=== PATIENT | female | born 1930 | race Caucasian/White ===

== ENCOUNTER 2016-11-13 17:20 | Inpatient (IN) | payer MEDICAID, OTHER ==
[~2016-11-13] VITALS: Ht 149.9 cm; Wt 58.5 kg
[2016-11-13] MEDS ORDERED: CLOP75TA33 PO (17:37)
[2016-11-13] MEDS ORDERED: ASPI-1159 PO (17:37)
[2016-11-13] MEDS ORDERED: GABA-531 PO (17:37)
[2016-11-13] MEDS ORDERED: LOSA50TA20 PO (17:37)
[2016-11-13] MEDS ORDERED: DAPA10TA PO (17:37)
[2016-11-13] MEDS ORDERED: METO25TA6 PO (17:37)
[2016-11-13 19:27] LABS: BASOPHILS % 0.3 % (0.0-2.0); EOSINOPHILS % 2.1 % (0.0-5.0); HEMATOCRIT. 38.6 % (36.0-48.0); HEMOGLOBIN. 12.6 g/dL (12.0-16.0); LYMPHOCYTES % 12.8 % (20.0-50.0); MEAN CORPUSCULAR HEMOGLOBIN 28.6 pg (28.0-32.0); MEAN CORPUSCULAR VOLUME 87.5 fL (81.0-99.0); MONOCYTES % 9.2 % (2.0-8.0); NEUTROPHILS % 75.6 % (40.0-76.0); PLATELET 205 x1000/uL (130-400); RED BLOOD CELL COUNT 4.42 mill/uL (4.2-5.4); RED CELL DISTRIBUTION WIDTH 13.8 % (11.6-14.6)
[2016-11-13 19:30] LABS: CHLORIDE 102 mEq/L (98-107)
[2016-11-13 19:33] LABS: INR 0.9; PROTHROMBIN TIME 9.9 sec (9.4-11.6)
[2016-11-13 19:36] LABS: CARBON DIOXIDE 25 mEq/L (21-32)
[2016-11-13] MEDS ORDERED: SODIUM CHLORIDE 0.9% 1,000 ML IV ONE ×2 (20:18→22:15)
[2016-11-13 21:30] LABS: CLARITY URINE CLEAR (CLEAR); COLOR URINE YELLOW (YELLOW); KETONES URINE NEGATIVE (NEGATIVE); LEUKOCYTE ESTERASE URINE NEGATIVE (NEGATIVE); NITRITE URINE NEGATIVE (NEGATIVE); OCCULT BLOOD URINE TRACE (NEGATIVE); PROTEIN URINE NEGATIVE (NEGATIVE); SPECIFIC GRAVITY URINE 1.021 (1.005-1.030); UROBILINOGEN URINE 0.2 E.U./dL (0.2-1.0)
[2016-11-13] MEDS ORDERED: CEFTRIAXONE 1 G PREMIX 50 ML IV ONE (22:15)
[2016-11-14 06:20] LABS: BASOPHILS % 0.4 % (0.0-2.0); EOSINOPHILS % 1.8 % (0.0-5.0); HEMATOCRIT. 35.5 % (36.0-48.0); HEMOGLOBIN. 11.4 g/dL (12.0-16.0); LYMPHOCYTES % 20.3 % (20.0-50.0); MEAN CORPUSCULAR HEMOGLOBIN 28.1 pg (28.0-32.0); MEAN CORPUSCULAR VOLUME 87.2 fL (81.0-99.0); MEAN PLATELET VOLUME 9.5 fl (7.4-10.4); MONOCYTES % 14.2 % (2.0-8.0); NEUTROPHILS % 63.3 % (40.0-76.0); PLATELET 174 x1000/uL (130-400); RED BLOOD CELL COUNT 4.07 mill/uL (4.2-5.4); RED CELL DISTRIBUTION WIDTH 13.9 % (11.6-14.6)
[2016-11-14] MEDS ORDERED: DEXTROSE 50% WATER 50ML SYRINGE IV PRN (07:45)
[2016-11-14] MEDS: INSULIN LISPRO 100 UNITS/ML SUBCUT SCH ×4 (08:16→21:08)
[2016-11-14] MEDS: SODIUM CHLORIDE 0.9% 1,000 ML IV SCH ×2 (08:42→21:10)
[2016-11-14] MEDS: BLOOD SUGAR DIAGNOSTIC STRIP TEST SCH ×4 (08:42→20:36)
[2016-11-14] MEDS ORDERED: ENOXAPARIN 30MG/0.3ML SYR SUBCUT SCH (09:00)
[2016-11-14 09:03] LABS: CREATINE KINASE 70 IU/L (26-192); TROPONIN I < 0.02 ng/mL (0.00-0.04)
[2016-11-14] MEDS ORDERED: REGADENOSON 0.4 MG/5 ML IV ONE (09:45)
[2016-11-14 10:08] LABS: BG BASE EXCESS -6.2 mmol/L (-2.0-2.0); BG CARBOXYHEMOGLOBIN 0.4 % (0.5-1.5); BG FRACTION INSPIRED OXYGEN 21; BG HCO3 ACT 18.3 mmol/L (22.0-26.0); BG METHEMOGLOBIN 0.1 % (0.0-1.5); BG OXYHEMOGLOBIN 95.5 % (94.0-97.0); BG PH 7.362 (7.350-7.450); BG PO2 83.9 mmHg (75.0-100.0); BG SAMPLE SITE RIGHT BRACHIAL; BG TOTAL HEMOGLOBIN 12.1 g/dL (12.0-18.0); BG VENT MODE ROOM AIR
[2016-11-14] MEDS: ASPIRIN 81MG EC TABLET PO SCH ×2 (10:08→17:03)
[2016-11-14] MEDS: CLOPIDOGREL 75MG TABLET PO SCH (10:08)
[2016-11-14] MEDS: METOPROLOL TARTRATE 25MG TABLET PO SCH ×2 (10:11→21:07)
[2016-11-14] MEDS ORDERED: LEVOFLOXACIN 500MG PREMIX 100 ML IV NR (12:00)
[2016-11-14] MEDS: NITROGLYCERIN OINT 1GM/INCH UDPKT TD SCH ×2 (14:00→21:07)
[2016-11-14] MEDS: ATORVASTATIN CALCIUM 10MG TABLET PO SCH (21:07)
[2016-11-15] MEDS: BLOOD SUGAR DIAGNOSTIC STRIP TEST SCH ×4 (05:59→20:39)
[2016-11-15] MEDS: NITROGLYCERIN OINT 1GM/INCH UDPKT TD SCH ×3 (06:01→21:10)
[2016-11-15] MEDS: INSULIN LISPRO 100 UNITS/ML SUBCUT SCH ×4 (06:03→21:09)
[2016-11-15 07:32] LABS: HEMATOCRIT. 34.9 % (36.0-48.0); HEMOGLOBIN. 11.3 g/dL (12.0-16.0); MEAN CORPUSCULAR HEMOGLOBIN 28.2 pg (28.0-32.0); MEAN CORPUSCULAR VOLUME 87.1 fL (81.0-99.0); MEAN PLATELET VOLUME 9.7 fl (7.4-10.4); PLATELET 178 x1000/uL (130-400); RED BLOOD CELL COUNT 4.01 mill/uL (4.2-5.4); RED CELL DISTRIBUTION WIDTH 14.3 % (11.6-14.6)
[2016-11-15 08:02] LABS: CARBON DIOXIDE 19 mEq/L (21-32); CHLORIDE 112 mEq/L (98-107); TROPONIN I < 0.02 ng/mL (0.00-0.04)
[2016-11-15] MEDS ORDERED: HYDROCODONE/ACETAMINOPHEN 5/325MG TABLET PO PRN (08:15)
[2016-11-15] MEDS: METOPROLOL TARTRATE 25MG TABLET PO SCH ×2 (09:00→21:10)
[2016-11-15] MEDS: ASPIRIN 81MG EC TABLET PO SCH ×2 (09:18→16:39)
[2016-11-15] MEDS: CLOPIDOGREL 75MG TABLET PO SCH (09:18)
[2016-11-15] MEDS: ENOXAPARIN 40MG/0.4ML SYR SUBCUT SCH (09:19)
[2016-11-15 10:19] LABS: PLATELET ESTIMATE NORMAL
[2016-11-15] MEDS: SODIUM CHLORIDE 0.9% 1,000 ML IV SCH ×2 (10:35→23:59)
[2016-11-15] MEDS: LEVOFLOXACIN 250MG PREMIX 50 ML IV SCH (13:27)
[2016-11-15] MEDS: ATORVASTATIN CALCIUM 10MG TABLET PO SCH (21:10)
[2016-11-16] MEDS: BLOOD SUGAR DIAGNOSTIC STRIP TEST SCH ×3 (05:52→17:28)
[2016-11-16] MEDS: NITROGLYCERIN OINT 1GM/INCH UDPKT TD SCH ×2 (05:54→13:26)
[2016-11-16] MEDS: INSULIN LISPRO 100 UNITS/ML SUBCUT SCH ×3 (05:56→17:37)
[2016-11-16 07:19] LABS: BASOPHILS % 0.8 % (0.0-2.0); EOSINOPHILS % 4.2 % (0.0-5.0); HEMATOCRIT. 32.7 % (36.0-48.0); HEMOGLOBIN. 10.7 g/dL (12.0-16.0); LYMPHOCYTES % 29.8 % (20.0-50.0); MEAN CORPUSCULAR HEMOGLOBIN 28.4 pg (28.0-32.0); MEAN CORPUSCULAR VOLUME 86.5 fL (81.0-99.0); MEAN PLATELET VOLUME 9.5 fl (7.4-10.4); MONOCYTES % 14.9 % (2.0-8.0); NEUTROPHILS % 50.3 % (40.0-76.0); PLATELET 185 x1000/uL (130-400); RED BLOOD CELL COUNT 3.79 mill/uL (4.2-5.4); RED CELL DISTRIBUTION WIDTH 13.9 % (11.6-14.6)
[2016-11-16 08:18] LABS: CARBON DIOXIDE 21 mEq/L (21-32); CHLORIDE 112 mEq/L (98-107); TROPONIN I < 0.02 ng/mL (0.00-0.04)
[2016-11-16] MEDS: METOPROLOL TARTRATE 25MG TABLET PO SCH (08:42)
[2016-11-16] MEDS: ASPIRIN 81MG EC TABLET PO SCH ×2 (08:42→16:28)
[2016-11-16] MEDS: CLOPIDOGREL 75MG TABLET PO SCH (08:42)
[2016-11-16] MEDS: ENOXAPARIN 40MG/0.4ML SYR SUBCUT SCH (08:43)
[2016-11-16] MEDS ORDERED: SODIUM POLYSTYRENE SULFONATE 15 G/60 ML BOT PO NR (10:45)
[2016-11-16] MEDS: LEVOFLOXACIN 250MG PREMIX 50 ML IV SCH (11:11)
[2016-11-16] MEDS ORDERED: LOSARTAN POTASSIUM 50 MG TABLET PO NR (16:15)
[2016-11-16 18:17] VITALS: BP 161/75
== END 2016-11-16 18:44 | disposition home or self-care (01) | DRG 463 ==
LOC: ER 17:20 → 6EST 22:32 → ENRESERV 23:43 → 8WST 11-14 09:11
PROVIDERS: ADMIT Internal Medicine; ATTEND Internal Medicine
DX: N39.0 Urinary tract infection, site not specified (principal); E11.65 Type 2 diabetes mellitus with hyperglycemia; R65.10 Systemic inflammatory response syndrome (SIRS) of non-infectious origin without acute organ dysfunction; E86.0 Dehydration; I11.9 Hypertensive heart disease without heart failure; E87.5 Hyperkalemia; I25.118 Atherosclerotic heart disease of native coronary artery with other forms of angina pectoris; E78.5 Hyperlipidemia, unspecified; I49.1 Atrial premature depolarization; Z79.02 Long term (current) use of antithrombotics/antiplatelets; Z79.899 Other long term (current) drug therapy; Z79.82 Long term (current) use of aspirin; I25.2 Old myocardial infarction; Z95.5 Presence of coronary angioplasty implant and graft
CPT/HCPCS: 36415; 36600; 71010; 72192; 80048; 80053; 81001; 82375; 82550; 82805; 82962; 83036; 83605; 84132; 84484; 85025; 85610; 87804; 93005; 93306; 93970; 96361; 96365; 97162; 99285; J0696; J1650; J1815; J1956; J7030

== ENCOUNTER 2018-07-31 19:06 | Emergency (ER) | payer MEDICAID ==
[~2018-07-31 19:06] MED LIST: AMLO5TAB88 PO; ASPI-1158 PO; CLOP75TA33 PO; DAPA10TA PO; GABA-531 PO; LIP40 PO; METO25TA6 PO
== END 2018-08-01 00:49 | disposition left against medical advice (07) ==
LOC: ER 23:29
DX: Z53.21 Procedure and treatment not carried out due to patient leaving prior to being seen by health care provider (principal)